=== PATIENT | female | born 1960 | race Caucasian/White ===

== ENCOUNTER 2018-04-22 07:47 | Observation (INO) | payer OTHER ==
[~2018-04-22] VITALS: Ht 157.5 cm; Wt 77.9 kg
[2018-04-22] VITALS (21 sets, daily range): BP systolic 100–129; BP diastolic 49–72; PULSE 60–87; RESP 12–20; Ht 157.5 cm; Wt 77.9 kg
[2018-04-22] MEDS: SOD CHLORIDE 0.9% 1,000 ML IV SCH ×2 (06:30→16:58)
[~2018-04-22 07:47] MED LIST: CEFAZOLIN 2 GM/50 ML (PMX) 50 ML IVPB SCH; HYDROmorphONE 1 MG/5 ML IV SYRINGE IV ONE; SOD CHLORIDE 0.9% 1,000 ML IV SCH
[2018-04-22] MEDS ORDERED: PROCHLORPERAZINE 10 MG INJ IV PRN (08:00)
[2018-04-22] MEDS ORDERED: ONDANSETRON 4 MG INJ IV PRN (08:00)
[2018-04-22] MEDS ORDERED: MEPERIDINE 25 MG INJ IV PRN (08:00)
[2018-04-22] MEDS ORDERED: LABETALOL HCL 20MG INJ IV PRN (08:00)
[2018-04-22] MEDS ORDERED: HYDROmorphONE 1 MG/5 ML IV SYRINGE IV PRN ×3 (08:00)
[2018-04-22] MEDS ORDERED: OXYCODONE/ACETAMINOPHEN (5/325) TAB PO PRN ×2 (08:00)
--- NOTE | 2018-04-22 08:30 | PREAC ---
Date/Time of Note Date/Time of Note DATE: 04/22/18 TIME: 08:26 Anesthesia Eval and Record Evaluation Time Pre-Procedure Interview DATE: 04/22/18 TIME: 08:26 Age 58 Sex female NPO: 8 hrs Preoperative diagnosis incarcerated incisional hernia and abd mass Planned procedure laparoscopic possible open incarcerated incisional hernia repair with mesh and abd mass resection Past Medical History Past Medical History: Includes Cardio: HTN, Dyslipidemia GI: Obesity Heme: Other (LUPUS) Surgery & Anesthesia Issues Hx of PONV Meds Anticoagulation: No Beta Charly within 24 hr: No Reason Beta Charly not given: Pt. not on B-Charly Reported Medications Hydroxychloroquine Sulfate* (Plaquenil*) 200 Mg Tab, 200 MG PO QAM, TAB 04/22/18 Ergocalciferol (Vitamin D2) (VITAMIN D2) 50,000 Unit Capsule, 59183 UNIT PO ONCE A WEKK, CAP 04/22/18 [place]-3 Fatty Acids/Fish Oil (Fish Oil 1,000 mg Capsule) 1 Each Capsule, 1 EACH PO DAILY, CAP 04/22/18 Atorvastatin* (Atorvastatin*) 80 Mg Tablet, 80 MG PO QHS, #30 TAB 04/22/18 Lisinopril* (Lisinopril*) 5 Mg Tablet, 5 MG PO DAILY, #30 TAB 04/22/18 [place]-3 Acid Ethyl Esters (Lovaza) 1 Gm Capsule, 2 GM PO BID, CAP 04/22/18 Gabapentin* (Gabapentin*) 400 Mg Capsule, 400 MG PO QHS, #90 CAP 04/22/18 Fenofibrate* (Fenofibrate*) 200 Mg Cap, 200 MG PO DAILY, CAP 04/22/18 Furosemide* (Lasix*) 20 Mg Tablet, 20 MG PO DAILY, TAB 04/22/18 Current Medications Cefazolin Sodium/ Dextrose 50 ml @ 100 mls/hr PREOP IVPB ; Start 04/22/18 at 06:30; Stop 04/22/18 at 20:00 Sodium Chloride 1,000 ml @ 75 mls/hr [id number] IV ; Start 04/22/18 at 06:30; Stop 04/22/18 at 20:00 Hydromorphone HCl (Dilaudid) 0.2 mg PACU PRN IV MILD PAIN 1-3; Start 04/22/18 at 08:00; Status UNV Hydromorphone HCl (Dilaudid) 0.4 mg PACU PRN IV MOD PAIN 4-6; Start 04/22/18 at 08:00; Status UNV Hydromorphone HCl (Dilaudid) 0.6 mg PACU PRN IV SEVERE PAIN 7-10; Start 04/22/18 at 08:00; Status UNV Oxycodone/ Acetaminophen (Percocet (5/ 325)) 1 tab PACU ORDER PRN PO .PAIN 1-5; Start 04/22/18 at 08:00; Status UNV Oxycodone/ Acetaminophen (Percocet (5/ 325)) 2 tab PACU ORDER PRN PO .PAIN 6-10; Start 04/22/18 at 08:00; Status UNV Ondansetron HCl (Zofran Inj) 4 mg PACU ORDER PRN IV NAUSEA/VOMITING; Start 04/22/18 at 08:00; Status UNV Prochlorperazine (Compazine Inj) 5 mg PACU ORDER PRN IV NAUSEA/VOMITING; Start 04/22/18 at 08:00; Status UNV Labetalol HCl (Labetalol) 5 mg PACU ORDER PRN IV HIGH BLOOD PRESSURE; Start 04/22/18 at 08:00; Status UNV Meperidine HCl (Demerol) 25 mg PACU ORDER PRN IV .RIGORS; Start 04/22/18 at 08:00; Status UNV Meds reviewed: Yes Allergies Coded Allergies: No Known Allergy (Unverified , 03/17/18) Allergies Reviewed: Yes Labs/Studies Labs Reviewed: Reviewed by anesthesiologist test: N/A Studies: ECG, CXR, Other (stress test negative ) Pre-procedure Exam Airway: Adequate mouth opening, Adequate thyromental dist Mallampati: Mallampati II Teeth: Normal Lung: Normal Heart: Normal ASA Physical Status ASA physical status: 2 Emergency: None Planned Anesthetic General/MAC: ETT Planned Pain Management Parenteral pain med, Local by surgeon Pre-operative Attestations Prior to commencing anesthesia and surgery, the patient was re-evaluated, there was verification of: *The patient's identity *The results of appropriate recent lab work and preoperative vital signs *The above evaluation not changing prior to induction *Anesthetic plan, risk benefits, alternative and complications discussed with patient/family; questions answered; patient/family understands, accepts and wishes to proceed. JAQUELINE SCOTT Apr 22, 2018 08:30
[2018-04-22] MEDS ORDERED: FURO-110 PO (08:44)
[2018-04-22] MEDS ORDERED: FENO200 PO (08:45)
[2018-04-22] MEDS ORDERED: GABA400C14 PO (08:45)
[2018-04-22] MEDS ORDERED: LISI-313 PO (08:46)
[2018-04-22] MEDS ORDERED: OMEG1CAP2 PO (08:46)
[2018-04-22] MEDS ORDERED: ATOR-2 PO (08:48)
[2018-04-22] MEDS ORDERED: OMEG-135 PO (08:49)
[2018-04-22] MEDS ORDERED: ERGO500013 PO (08:49)
[2018-04-22] MEDS ORDERED: HYDR200T5 PO (08:50)
[2018-04-22] MEDS ORDERED: BUPIVACAINE 0.25% (MPF) 30 ML INJ ONE (09:51)
[2018-04-22] MEDS ORDERED: PROPOFOL 20 ML ONE (09:58)
[2018-04-22] MEDS ORDERED: LIDOCAINE 2% (SDV) 5 ML INJ ONE (09:58)
[2018-04-22] MEDS ORDERED: ROCURONIUM 50 MG INJ ONE (09:58)
[2018-04-22] MEDS ORDERED: FENTAnyl 50 MCG/ML VIAL ONE ×2 (09:58→11:23)
[2018-04-22] MEDS ORDERED: PROPOFOL 40 ML ONE ×2 (10:00→11:01)
[2018-04-22] MEDS ORDERED: SCOPOLAMINE 1.5 MG PATCH ONE (10:00)
[2018-04-22] MEDS ORDERED: FAMOTIDINE 20 MG INJ ONE (10:06)
[2018-04-22] MEDS ORDERED: METOCLOPRAMIDE 10 MG INJ ONE (10:06)
[2018-04-22] MEDS ORDERED: ONDANSETRON 4 MG INJ ONE (10:06)
[2018-04-22] MEDS ORDERED: DEXAMETHASONE 4 MG/ML 5 ML INJ ONE (10:06)
[2018-04-22] MEDS ORDERED: NEOSTIGMINE 3 MG/3 ML SYRINGE ONE (10:54)
[2018-04-22] MEDS ORDERED: GLYCOPYRROLATE 0.4 MG INJ ONE (10:54)
[2018-04-22] MEDS ORDERED: EPHEDrine 25 MG/5 ML SYG ONE (11:08)
[2018-04-22] MEDS ORDERED: HYDROCODONE/APAP (5/325) TAB PO ONE (11:30)
--- NOTE | 2018-04-22 11:30 | OPR ---
Date/Time of Note Date/Time of Note DATE: 04/22/18 TIME: 11:23 Operative Report Procedure Date: Apr 22, 2018 Preoperative Diagnosis incarcerated ventral hernia and abdominal mass Postoperative Diagnosis abdominal mass incarcerated ventral hernia incarcerated incisional hernia Operation/Procedure Performed 1. laparoscopic incarcerated incisional hernia repair 2. laparoscopic incarcerated ventral hernia repair 3. implantation ventralight ST mesh 4. laparoscopic lysis of adhesions 5. resection of abdominal mass 7 cm mass 9 cm incision 6. localized adjacent tissue transfer with the use of skin flaps 18 sq cm defect of abdomen 7. therapeutic injection of subcutaneous local anesthesia Surgeon see signature line Mechanical Handyman Junior Lentz Anesthesia Type: general Estimated Blood Loss: 10 - 50 ml's Transfusion none Specimen hernia sac contents abdominal mass Grafts/Implants none Complications none Pt Condition Post Procedure: stable Indications This is a 58-year-old female with abdominal pain. She was found on evaluation examination to have hernias in the ventral area and an incisional hernia that is incarcerated. She also has a mid epigastric abdominal mass. She required surgical excision of the mass and repair of the hernias. Risks alternatives benefits and percent were discussed with the patient. Patient expressed understanding consents to the operation. Procedure Description Patient is taken to the OR and prepped and draped in usual sterile fashion. Surgical time was performed. IV antibiotics given. Left upper quadrant 5 mm transverse incision was made with a 15 blade. Using a 5 mm optical trocar optical entry is performed. Pneumoperitoneum is established. Left flank 12 mm optical trochars placed under direct position. Left lower quadrant 5 mm optical trochars were placed under direct physician. Upon initial inspection there is incarcerated ventral hernia. Using lap scopic lysis of adhesions the contents are lysed and then reduced. The reduced contents are then excised and pulled through the left flank port. The hernia defect is identified. The hernia defect was closed primarily using #1 Vicryl and Endo Close using laparoscopic techniques. After primary closure of the defect underlay with ventral light ST mesh is secured in place with secure strap with approximate 4-5 cm coverage in all direction. After this is secured the midepigastric mass is also identified. Transverse incision was made with a 15 blade and the mass is excised using cautery. Good hemostasis established. A small hernia defect is also identified in this area was then closed with a [id number] #1 Vicryl after the incarcerated contents are excised. Due to the tissue defect localized adjacent to his transfer with these of skin flaps were performed. Multilayer closure with interrupted 3-0 Vicryl and skin david. Attention was then paid to a midepigastric incisional hernia. The abdomen was reentered laparoscopically and the hernia defect is identified in the mid epigastric region. This area is covered with underlay coverage with ventral light ST mesh. The mesh is secured in place with secure strap with approximate 4-5 cm coverage in all directions. Both surgical sites were hemostatic. All ports were removed under direct physician. Skin is closed using skin david. Therapeutic contains local anesthesia was injected throughout all port sites and incision sites. Dry dressings were applied. Pricilla ASHLEY Apr 22, 2018 11:30
--- NOTE | 2018-04-22 12:28 | PAC ---
Date/Time of Note Date/Time of Note DATE: 04/22/18 TIME: 12:28 Post-Anesthesia Notes Post-Anesthesia Note Last documented vital signs Vital Signs Date Temp Pulse Resp B/P (MAP) Pulse Ox O2 O2 Flow FiO2 Time Delivery Rate 04/22/18 72 13 120/58 97 Room Air 12:15 (78) 04/22/18 2.0 11:40 04/22/18 98.0 11:35 Activity: WNL Respiratory function: WNL Cardiovascular function: WNL Mental status: Baseline Pain reasonably controlled: Yes Hydration appropriate: Yes Nausea/Vomiting absent: Yes JAQUELINE SCOTT Apr 22, 2018 12:28
[2018-04-22] MEDS ORDERED: HYDROmorphONE 0.5 MG/0.5 ML SYG IV STA (14:41)
[2018-04-22] MEDS ORDERED: HYDROmorphONE 1 MG/ML SYG IV STA (14:51)
[2018-04-22] MEDS ORDERED: DIAZEPAM 5 MG TAB PO ONE (15:00)
[2018-04-22] MEDS: HYDROCODONE/APAP (5/325) TAB PO PRN (20:26)
[2018-04-22] MEDS ORDERED: morphine 2 MG INJ IV PRN (20:30)
[2018-04-22] MEDS: CEFAZOLIN 2 GM/50 ML (PMX) 50 ML IVPB SCH (22:35)
[2018-04-23 01:55] VITALS: BP 116/63; PULSE 76; RESP 18
[2018-04-23] MEDS: HYDROCODONE/APAP (5/325) TAB PO PRN ×2 (03:23→21:50)
[2018-04-23] MEDS: CEFAZOLIN 2 GM/50 ML (PMX) 50 ML IVPB SCH ×2 (05:55→13:58)
[2018-04-23 07:39] VITALS: BP 130/63; PULSE 16; RESP 16
--- NOTE | 2018-04-23 09:46 | PN ---
Date/Time of Note Date/Time of Note DATE: 04/23/18 TIME: 09:44 Assessment/Plan VTE Prophylaxis Risk score (from Ns)>0 risk: 8 SCD applied (from Ns): Yes SCD contraindicated: other Pharmacological prophylaxis: other Lines/Catheters IV Catheter Type (from Nrsg): Saline Lock Assessment/Plan Assessment/Plan s/p lap ventral hernia repair and lap incarcerated incisional hernia repair with mesh and abd mass resection tolerating diet and will need another day for pain management Result Diagram: 04/23/1815 04/23/18 0515 Results 24hrs Laboratory Tests Test 04/23/18 05:15 White Blood Count 13.2 H Red Blood Count 3.41 #L Hemoglobin 10.6 #L Hematocrit 32.1 #L Mean Corpuscular Volume 94.1 Mean Corpuscular Hemoglobin 31.1 Mean Corpuscular Hemoglobin Concent 33.0 Red Cell Distribution Width 11.6 Platelet Count 249 Mean Platelet Volume 9.0 # Immature Granulocytes % 0.600 H Neutrophils % 84.8 H Lymphocytes % 10.1 L Monocytes % 4.3 Eosinophils % 0.0 Basophils % 0.2 Nucleated Red Blood Cells % 0.0 Immature Granulocytes # 0.080 H Neutrophils # 11.2 H Lymphocytes # 1.3 Monocytes # 0.6 Eosinophils # 0.0 Basophils # 0.0 Nucleated Red Blood Cells # 0.0 Sodium Level 137 Potassium Level 4.3 Chloride Level 111 H Carbon Dioxide Level 21 Anion Gap 5 Blood Urea Nitrogen 20 Creatinine 0.91 Est Glomerular Filtrat Rate mL/min > 60 Glucose Level 113 Calcium Level 9.5 Total Bilirubin 0.1 L Direct Bilirubin 0.00 Indirect Bilirubin 0.1 Aspartate Amino Transf (AST/SGOT) 21 Alanine Aminotransferase (ALT/SGPT) 17 Alkaline Phosphatase 78 Total Protein 5.5 L Albumin 2.9 L Globulin 2.60 Albumin/Globulin Ratio 1.11 Subjective 24 Hr Interval Summary Free Text/Dictation doing well but some post op pain Exam/Review of Systems Exam Vitals Vital Signs Date Temp Pulse Resp B/P (MAP) Pulse Ox O2 O2 Flow FiO2 Time Delivery Rate 04/23/18 98.1 16 16 130/63 99 07:39 (85) 04/22/18 Nasal 2.0 15:59 Cannula Intake and Output 04/22/18 04/22/18 04/23/18 1414:59 22:59 06:59 IntakeIntake Total 2170 ml 1630 ml 1710 ml OutputOutput Total 10 ml BalanceBalance 2160 ml 1630 ml 1710 ml Exam c/d/i Results Results 24hrs Laboratory Tests Test 04/23/18 05:15 White Blood Count 13.2 H Red Blood Count 3.41 #L Hemoglobin 10.6 #L Hematocrit 32.1 #L Mean Corpuscular Volume 94.1 Mean Corpuscular Hemoglobin 31.1 Mean Corpuscular Hemoglobin Concent 33.0 Red Cell Distribution Width 11.6 Platelet Count 249 Mean Platelet Volume 9.0 # Immature Granulocytes % 0.600 H Neutrophils % 84.8 H Lymphocytes % 10.1 L Monocytes % 4.3 Eosinophils % 0.0 Basophils % 0.2 Nucleated Red Blood Cells % 0.0 Immature Granulocytes # 0.080 H Neutrophils # 11.2 H Lymphocytes # 1.3 Monocytes # 0.6 Eosinophils # 0.0 Basophils # 0.0 Nucleated Red Blood Cells # 0.0 Sodium Level 137 Potassium Level 4.3 Chloride Level 111 H Carbon Dioxide Level 21 Anion Gap 5 Blood Urea Nitrogen 20 Creatinine 0.91 Est Glomerular Filtrat Rate mL/min > 60 Glucose Level 113 Calcium Level 9.5 Total Bilirubin 0.1 L Direct Bilirubin 0.00 Indirect Bilirubin 0.1 Aspartate Amino Transf (AST/SGOT) 21 Alanine Aminotransferase (ALT/SGPT) 17 Alkaline Phosphatase 78 Total Protein 5.5 L Albumin 2.9 L Globulin 2.60 Albumin/Globulin Ratio 1.11 Medications Medication Current Medications Cefazolin Sodium/ Dextrose 50 ml @ 100 mls/hr Q8 IVPB Last administered on 04/23/18at 05:55; Admin Dose 100 MLS/HR; Start 04/22/18 at 22:00; Stop 04/23/18 at 21:59 Morphine Sulfate (morphine) 2 mg Q2H PRN IV SEVERE PAIN LEVEL 7-10; Start 04/22/18 at 20:30 Acetaminophen/ Hydrocodone Bitart ([place] (5/325)) 1 tab Q4H PRN PO MODERATE PAIN LEVEL 4-6 Last administered on 04/23/18at 03:23; Admin Dose 1 TAB; Start at 20:30 Pricilla ASHLEY Apr 23, 2018 09:46
[2018-04-23 14:04] VITALS: BP 126/69; PULSE 82; RESP 16
[2018-04-23 19:46] VITALS: BP 135/80; PULSE 72; RESP 18
[2018-04-23 22:39] VITALS: BP 120/63; PULSE 63; RESP 18
[2018-04-24 01:56] VITALS: BP 118/60; PULSE 85; RESP 18
[2018-04-24 07:55] VITALS: BP 138/75; PULSE 65; RESP 18
--- NOTE | 2018-04-24 11:25 | HP ---
Date/Time of Note Date/Time of Note DATE: 04/24/18 TIME: 11:02 Assessment/Plan VTE Prophylaxis Risk score (from Nsg)>0 risk: 2 SCD applied (from Nsg): Yes Lines/Catheters IV Catheter Type (from Nrsg): Saline Lock Assessment/Plan Assessment/Plan -incarcerated ventral hernia and abdominal mass -SP laparoscopic incarcerated incisional hernia repair Result Diagram: 04/24/18 0552 04/24/18 0552 Results 24hrs Laboratory Tests Test 04/24/18 05:52 White Blood Count 10.9 H Red Blood Count 3.45 L Hemoglobin 10.3 L Hematocrit 32.0 L Mean Corpuscular Volume 92.8 Mean Corpuscular Hemoglobin 29.9 Mean Corpuscular Hemoglobin Concent 32.2 Red Cell Distribution Width 11.8 Platelet Count 254 Mean Platelet Volume 8.6 Immature Granulocytes % 0.300 Neutrophils % 61.4 Lymphocytes % 30.6 Monocytes % 6.2 Eosinophils % 1.0 Basophils % 0.5 Nucleated Red Blood Cells % 0.0 Immature Granulocytes # 0.030 Neutrophils # 6.7 Lymphocytes # 3.3 H Monocytes # 0.7 Eosinophils # 0.1 Basophils # 0.1 Nucleated Red Blood Cells # 0.0 Sodium Level 138 Potassium Level 3.7 Chloride Level 106 Carbon Dioxide Level 26 Anion Gap 6 Blood Urea Nitrogen 20 Creatinine 0.93 Est Glomerular Filtrat Rate mL/min > 60 Glucose Level 90 Calcium Level 9.9 HPI/ROS Admit Date/Time Admit Date/Time Apr 22, 2018 at 14:43 ROS pATIENT SEEN ON 04/22/2108 Respiratory: no complaints Cardiovascular: no complaints Gastrointestinal: pain Genitourinary: no complaints Musculoskeletal: no complaints Skin: no complaints Neurologic: no complaints Endocrine: no complaints, polydypsia PMH/Family/Social Past Medical History LUPUS Medical History: high cholesterol, hypertension Medications Current Medications Morphine Sulfate (morphine) 2 mg Q2H PRN IV SEVERE PAIN LEVEL 7-10; Start 04/22/18 at 20:30 Acetaminophen/ Hydrocodone Bitart ([place] (5/325)) 1 tab Q4H PRN PO MODERATE PAIN LEVEL 4-6 Last administered on 04/23/18at 21:50; Admin Dose 1 TAB; Start 04/22/18 at 20:30 Coded Allergies: No Known Allergy (Unverified , 03/17/18) Past Surgical History Past Surgical Hx: cholecystectomy, other (APPENDECTOMY) Social History Alcohol Use: none Smoking Status: Current every day smoker Drug Use: none Exam/Review of Systems Vital Signs Vitals Vital Signs Date Temp Pulse Resp B/P (MAP) Pulse Ox O2 O2 Flow FiO2 Time Delivery Rate 04/24/18 98.7 65 18 138/75 97 07:55 (96) 04/22/18 Nasal 2.0 15:59 Cannula Intake and Output 04/23/18 04/23/18 04/24/18 1515:00 23:00 07:00 IntakeIntake Total 1010 ml 480 ml 380 ml BalanceBalance 1010 ml 480 ml 380 ml Exam Constitutional: alert, well developed Psych: nl mood/affect Eyes: EOMI ENMT: nl external ears & nose Respiratory: clear to auscultation Cardiovascular: nl pulses Musculoskeletal: nl extremities to inspection Extremities: normal pulses Neurological: nl mental status, nl speech JESSICA FAIRCHILD Apr 24, 2018 11:25
[2018-04-24] MEDS ORDERED: LISINOPRIL 5 MG TAB PO SCH (13:30)
[2018-04-24] MEDS ORDERED: FUROSEMIDE 20 MG TAB PO SCH (13:30)
[2018-04-24] MEDS ORDERED: FISH OIL 1,000 MG CAP PO ONE (13:30)
--- NOTE | 2018-04-24 13:33 | PDOCDIS ---
Discharge Instructions CONDITION [id number] Patient Condition: [id number] Stable HOME CARE INSTRUCTIONS: [id number] Diet Instructions: [id number] Regular ACTIVITY: [id number] Activity Restrictions: [id number] Slowly Increase Activity Rest between Activity [id number] Bathing Restrictions: [id number] Sponge Bath FOLLOW UP/APPOINTMENTS Follow-up Plan FU W/ PMD X 1 WEEK FU W/Surgery as recommended Call 911 or go to the nearest hospital if symptoms worsen- patient verbalized understanding discharge instructions Plan Dr Pena/staff JESSICA FAIRCHILD Apr 24, 2018 13:33
[2018-04-24] MEDS ORDERED: HYDR-4011 PO (13:35)
[2018-04-24 13:42] VITALS: BP 134/66; PULSE 75; RESP 18
[2018-04-24] MEDS ORDERED: GABAPENTIN 400 MG CAP PO SCH (21:00)
[2018-04-24] MEDS ORDERED: ATORVASTATIN 80 MG TAB PO SCH (21:00)
--- NOTE | 2018-04-24 23:37 | DS ---
Date/Time of Note Date/Time of Note DATE: 04/24/18 TIME: 23:37 Discharge Summary Admission/Discharge Info Admit Date/Time Apr 22, 2018 at 14:43 Discharge Date/Time Apr 24, 2018 at 15:16 Home Meds Active Scripts Hydrocodone/Acetaminophen ([place] 5-325 Tablet) 1 Each Tablet, 1 EACH PO Q6, #14 TAB Prov:JESSICA FAIRCHILD 04/24/18 Reported Medications Hydroxychloroquine Sulfate* (Plaquenil*) 200 Mg Tab, 200 MG PO QAM, TAB 04/22/18 Ergocalciferol (Vitamin D2) (VITAMIN D2) 50,000 Unit Capsule, 70055 UNIT PO ONCE A WEKK, CAP 04/22/18 [place]-3 Fatty Acids/Fish Oil (Fish Oil 1,000 mg Capsule) 1 Each Capsule, 1 EACH PO DAILY, CAP 04/22/18 Atorvastatin* (Atorvastatin*) 80 Mg Tablet, 80 MG PO QHS, #30 TAB 04/22/18 Lisinopril* (Lisinopril*) 5 Mg Tablet, 5 MG PO DAILY, #30 TAB 04/22/18 [place]-3 Acid Ethyl Esters (Lovaza) 1 Gm Capsule, 2 GM PO BID, CAP 04/22/18 Gabapentin* (Gabapentin*) 400 Mg Capsule, 400 MG PO QHS, #90 CAP 04/22/18 Fenofibrate* (Fenofibrate*) 200 Mg Cap, 200 MG PO DAILY, CAP 04/22/18 Furosemide* (Lasix*) 20 Mg Tablet, 20 MG PO DAILY, TAB 04/22/18 Follow-up Plan FU W/ PMD X 1 WEEK FU W/Surgery as recommended Call 911 or go to the nearest hospital if symptoms worsen- patient verbalized un derstanding discharge instructions Plan dw Dr Pena/staff Primary Care Provider Not On Staff Doctor Pending Labs Laboratory Tests Test 04/24/18 05:52 White Blood Count 10.9 10^3/ul (4.8-10.8) Red Blood Count 3.45 10^6/ul (4.20-5.40) Hemoglobin 10.3 g/dl (12.0-16.0) Hematocrit 32.0 % (37.0-47.0) Mean Corpuscular Volume 92.8 fl (82.0-101.0) Mean Corpuscular Hemoglobin 29.9 pg (29.0-33.0) Mean Corpuscular Hemoglobin Concent 32.2 g/dl (32.0-37.0) Red Cell Distribution Width 11.8 % (11.5-14.5) Platelet Count 254 10^3/UL (140-415) Mean Platelet Volume 8.6 fl (7.4-10.4) Immature Granulocytes % 0.300 % (0.001-0.429) Neutrophils % 61.4 % (39.0-77.0) Lymphocytes % 30.6 % (15.0-51.0) Monocytes % 6.2 % (0.0-11.0) Eosinophils % 1.0 % (0.0-7.0) Basophils % 0.5 % (0.0-2.0) Nucleated Red Blood Cells % 0.0 /100WBC (0.0-0.0) Immature Granulocytes # 0.030 10^3/ul (0.0-0.031) Neutrophils # 6.7 10^3/ul (1.6-7.5) Lymphocytes # 3.3 10^3/ul (0.8-2.9) Monocytes # 0.7 10^3/ul (0.3-0.9) Eosinophils # 0.1 10^3/ul (0.0-0.5) Basophils # 0.1 10^3/ul (0.0-0.1) Nucleated Red Blood Cells # 0.0 10^3/ul (0.0-0.0) Sodium Level 138 mmol/L (135-144) Potassium Level 3.7 mmol/L (3.5-5.1) Chloride Level 106 mmol/L (97-110) Carbon Dioxide Level 26 mmol/L (21-31) Anion Gap 6 (5-13) Blood Urea Nitrogen 20 mg/dl (7-20) Creatinine 0.93 mg/dl (0.44-1.00) Est Glomerular Filtrat Rate mL/min > 60 mL/min (>60) Glucose Level 90 mg/dl (70-220) Calcium Level 9.9 mg/dl (8.4-10.2) JESSICA FAIRCHILD Apr 24, 2018 23:37
[2018-04-25] MEDS ORDERED: HYDROXYCHLOROQUINE 200 MG TAB PO SCH (09:00)
== END 2018-04-24 15:16 | disposition home or self-care (01) ==
LOC: SDS 07:47 → REC 14:43 → 2NE 16:18
PROVIDERS: ADMIT Surgery; ATTEND Surgery
DX: K43.6 Other and unspecified ventral hernia with obstruction, without gangrene (principal); K43.0 Incisional hernia with obstruction, without gangrene; K66.0 Peritoneal adhesions (postprocedural) (postinfection); R19.00 Intra-abdominal and pelvic swelling, mass and lump, unspecified site; E78.00 Pure hypercholesterolemia, unspecified; I10 Essential (primary) hypertension; F17.200 Nicotine dependence, unspecified, uncomplicated
CPT/HCPCS: 22903; 49653; 49655; 80048; 80053; 85025; 88302; 88307; C1781; J0690; J1100; J1170; J2175; J2405; J2710; J2765; J3010; J7030; Z7500; Z7512; Z7610; G0378